=== PATIENT | male | born 1990 | race Caucasian/White ===

== ENCOUNTER 2023-03-29 09:08 | Emergency (ER) | payer MEDICAID ==
[~2023-03-29] VITALS: Ht 160 cm; Wt 82.3 kg
[2023-03-29 09:14] VITALS: TEMP 98.7; O2SAT 99
[2023-03-29] MEDS ORDERED: KETOROLAC 60MG/2ML VIAL IM ONE (11:15)
[2023-03-29] MEDS ORDERED: TRAMADOL 50MG TABLET PO ONE (11:15)
[2023-03-29 11:24] VITALS: BP 121/69; PULSE 87; RESP 18
[2023-03-29] MEDS ORDERED: NAP5EC MT (12:18)
== END 2023-03-29 12:40 | disposition home or self-care (01) ==
LOC: ER 09:08
DX: R07.89 Other chest pain (principal)
CPT/HCPCS: 96372; 99283; J1885; Z7610